=== PATIENT | male | born 1975 | race Caucasian/White ===

== ENCOUNTER 2017-10-08 11:41 | Emergency (ER) | payer BC ==
[~2017-10-08] VITALS: Ht 185.4 cm; Wt 97.5 kg
--- NOTE | 2017-10-08 12:18 | PHYS DOC ---
Adult General Chief Complaint Chief Complaint: FLANK PAIN HPI HPI Patient is a 42 year old male who presents with flank pain and left testicle pain. He states all started a couple hours ago in his left testicle started hurting and now is radiating up into his left flank. States this is similar to when he has kidney stone but his left testicle didn't hurt then. He does have urgency and states he can only urinate a few drops at a time. Denies any nausea or vomiting. Review of Systems Review of Systems Constitutional: Denies fever or chills [] Eyes: Denies change in visual acuity, redness, or eye pain [] HENT: Denies nasal congestion or sore throat [] Respiratory: Denies cough or shortness of breath [] Cardiovascular: No additional information not addressed in HPI [] GI: Denies abdominal pain, nausea, vomiting, bloody stools or diarrhea [] : Denies dysuria or hematuria positive for urgency Musculoskeletal: Denies back pain or joint pain [] Integument: Denies rash or skin lesions [] Neurologic: Denies headache, focal weakness or sensory changes [] Endocrine: Denies polyuria or polydipsia [] All other systems were reviewed and found to be within normal limits, except as documented in this note. Current Medications Current Medications Current Medications Medications (Trade) Dose Ordered Sig/Giles Start Time Stop Time Status Last Admin Dose Admin Diphenhydramine HCl (Benadryl) 50 mg STK-MED ONCE 10/08/17 12:44 10/08/17 12:45 DC Ketorolac Tromethamine (Toradol) 30 mg 1X ONCE 10/08/17 13:15 10/08/17 13:16 DC 10/08/17 14:42 30 MG Morphine Sulfate 4 mg PRN Q15MIN PRN 10/08/17 12:30 10/08/17 12:56 DC 10/08/17 12:40 4 MG Sodium Chloride 1,000 ml @ 1,000 mls/hr 1X ONCE 10/08/17 13:15 10/08/17 14:24 DC 10/08/17 14:39 1,000 MLS/HR Tamsulosin HCl (Flomax) 0.4 mg 1X ONCE 10/08/17 14:45 10/08/17 14:46 DC 10/08/17 14:45 0.4 MG Allergies Allergies Allergies Coded Allergies Type Severity Reaction Last Updated Verified morphine Allergy Intermediate HIVES 10/08/17 Yes Physical Exam Physical Exam Constitutional: Well developed, well nourished, no acute distress, non-toxic appearance. [] HENT: Normocephalic, atraumatic, bilateral external ears normal, oropharynx moist, no oral exudates, nose normal. [] Eyes: PERRLA, EOMI, conjunctiva normal, no discharge. [] Neck: Normal range of motion, no tenderness, supple, no stridor. [] Cardiovascular:Heart rate regular rhythm, no murmur [] Lungs & Thorax: Bilateral breath sounds clear to auscultation [] Abdomen: Bowel sounds normal, soft, no tenderness, no masses, no pulsatile masses. Tenderness involving the left testicle Skin: Warm, dry, no erythema, no rash. [] Back: No tenderness, positive for left CVA tenderness. [] Extremities: No tenderness, no cyanosis, no clubbing, ROM intact, no edema. [] Neurologic: Alert and oriented X 3, normal motor function, normal sensory function, no focal deficits noted. [] Psychologic: Affect normal, judgement normal, mood normal. [] Current Patient Data Vital Signs Vital Signs Date Time Temp Pulse Resp B/P (MAP) Pulse Ox O2 Delivery O2 Flow Rate FiO2 10/08/17 15:00 68 18 119/78 (92) 96 Room Air 10/08/17 11:48 97.9 97.9 Lab Values Laboratory Tests Test 10/08/17 11:55 10/08/17 12:05 Urine Collection Type Unknown Urine Color Yellow Urine Clarity Clear Urine pH 6.0 Urine Specific [place] 1.015 Urine Protein Negative mg/dL (NEG-TRACE) Urine Glucose (UA) Negative mg/dL (NEG) Urine Ketones (Stick) Negative mg/dL (NEG) Urine Blood Large (NEG) Urine Nitrite Negative (NEG) Urine Bilirubin Negative (NEG) Urine Urobilinogen Dipstick 0.2 mg/dL (0.2 mg/dL) Urine Leukocyte Esterase Negative (NEG) Urine RBC Tntc /HPF (0-2) Urine WBC 0 /HPF (0-4) Urine Bacteria 0 /HPF (0-FEW) Urine Opiates Screen Neg (NEG) Urine Methadone Screen Neg (NEG) Urine Barbiturates Neg (NEG) Urine Phencyclidine Screen Neg (NEG) Urine Amphetamine/Methamphetamine Neg (NEG) Urine Benzodiazepines Screen Neg (NEG) Urine Cocaine Screen Neg (NEG) Urine Cannabinoids Screen Neg (NEG) Urine Ethyl Alcohol Neg (NEG) White Blood Count 7.7 x10^3/uL (4.0-11.0) Red Blood Count 5.61 x10^6/uL (4.30-5.70) Hemoglobin 15.3 g/dL (13.0-17.5) Hematocrit 46.8 % (39.0-53.0) Mean Corpuscular Volume 83 fL (79-100) Mean Corpuscular Hemoglobin 27 pg (25-35) Mean Corpuscular Hemoglobin Concent 33 g/dL (31-37) Red Cell Distribution Width 13.6 % (11.5-14.5) Platelet Count 263 x10^3/uL (140-400) Neutrophils (%) (Auto) 56 % (31-73) Lymphocytes (%) (Auto) 35 % (24-48) Monocytes (%) (Auto) 8 % (0-9) Eosinophils (%) (Auto) 1 % (0-3) Basophils (%) (Auto) 1 % (0-3) Neutrophils # (Auto) 4.3 x10^3uL (1.8-7.7) Lymphocytes # (Auto) 2.7 x10^3/uL (1.0-4.8) Monocytes # (Auto) 0.6 x10^3/uL (0.0-1.1) Eosinophils # (Auto) 0.1 x10^3/uL (0.0-0.7) Basophils # (Auto) 0.1 x10^3/uL (0.0-0.2) Prothrombin Time 12.6 SEC (11.7-14.0) Prothrombin Time INR 1.0 (0.8-1.1) PTT 27 SEC (24-38) Sodium Level 139 mmol/L (136-145) Potassium Level 4.0 mmol/L (3.5-5.1) Chloride Level 101 mmol/L (98-107) Carbon Dioxide Level 29 mmol/L (21-32) Anion Gap 9 (6-14) Blood Urea Nitrogen 12 mg/dL (8-26) Creatinine 1.0 mg/dL (0.7-1.3) Estimated GFR (Cockcroft-Gault) 82.3 Glucose Level 104 mg/dL (70-99) H Calcium Level 8.9 mg/dL (8.5-10.1) Total Bilirubin 0.9 mg/dL (0.2-1.0) Direct Bilirubin 0.1 mg/dL (0.0-0.2) Aspartate Amino Transferase (AST) 42 U/L (15-37) H Alanine Aminotransferase (ALT) 123 U/L (16-63) H Alkaline Phosphatase 100 U/L (46-116) Creatine Kinase 96 U/L (39-308) Creatine Kinase MB (Mass) < 0.5 ng/mL (0.0-3.6) Creatine Kinase MB Relative Index % (0-4) Total Protein 8.5 g/dL (6.4-8.2) H Albumin 4.3 g/dL (3.4-5.0) Lipase 211 U/L (73-393) Laboratory Tests 10/08/17 12:05 Laboratory Tests 10/08/17 12:05 EKG EKG [] Radiology/Procedures Radiology/Procedures [facility] [address] [place] [address] IMAGING REPORT Signed PATIENT: KARTHIK SÁNCHEZ ACCOUNT: [id number] : 1975 LOCATION: ER AGE: 42 SEX: M EXAM STATUS: REG ER ORD. PHYSICIAN: RADHA LIZ MD REASON: LT TESTICLE PAIN PROCEDURE: TESTICULAR/SCROTUM Ultrasound testicles Indication: Left testicle pain Technique: Grayscale, color Doppler and spectral waveform ultrasound images of the chest were obtained. Comparison: None Findings: The right testicle measures 5.0 x 3.3 x 2.7 cm and is normal in echogenicity without focal lesion. Blood flow is demonstrated in right testicle. The epididymal head measures 1.2 cm and is within normal limits. The left testicle measures 4.3 x 3.4 x 2.4 cm and is normal in echogenicity without focal lesion. Blood flow is demonstrated in left testicle. The epididymal head measures 1.0 cm and is within normal limits. Small bilateral hydroceles. Mild left-sided varicoceles. Impression: 1. Blood flow demonstrated to both testicles. 2. No testicular lesions. DICTATED and SIGNED BY: TILA BARAHONA DO DATE: 10/08/17 1345 CC: RADHA LIZ MD; NO PCP ~ [facility] [address] [place] [address] IMAGING REPORT Signed PATIENT: KARTHIK SÁNCHEZ ACCOUNT: [id number] : 1975 LOCATION: ER AGE: 42 SEX: M EXAM STATUS: REG ER ORD. PHYSICIAN: RADHA LIZ MD REASON: stone protocol PROCEDURE: CT ABDOMEN PELVIS WO CONTRAST Indication: Left flank pain. Axial imaging through the abdomen and pelvis was performed without contrast. No prior studies are available for comparison. Imaging through the lung bases demonstrates areas of linear scarring or atelectasis. The liver and gallbladder are unremarkable. The pancreas and spleen are unremarkable. No adrenal mass is identified. The right kidney is unremarkable. There is a 4 mm nonobstructing calculus in the lower pole of the left kidney. There is mild left hydroureteronephrosis and periureteral inflammatory stranding. This appears to be caused by a 3 mm calculus located at the left UVJ. No other ureteral calculi are seen. The bladder is unremarkable. The small and large bowel loops are normal caliber. There is no ascites. Impression: 1. 4 mm nonobstructing left renal calculus. 2. 3 mm left UVJ calculus producing mild hydroureteronephrosis. PQRS Compliance Statement: One or more of the following individualized dose reduction techniques were utilized for this examination: 1. Automated exposure control 2. Adjustment of the mA and/or kV according to patient size 3. Use of iterative reconstruction technique DICTATED and SIGNED BY: DANIELLE ALCANTARA MD DATE: 10/08/17 1358 CC: RADHA LIZ MD; NO PCP ~ Impressions: Left sided kidney stone Course & Med Decision Making Course & Med Decision Making Pertinent Labs and Imaging studies reviewed. (See chart for details) Testicular ultrasound does not show any acute abnormality's. CT abdomen and pelvis shows 2 stones and the left one in the UVP, pain was controlled with morphine even though he developed a rash to and received IV Benadryl. He is not had any more complaints about his rash. He is being discharged home with Flomax , [place] and Zofran as needed. He is to follow-up with urology within the next week and strain his urine. Return precautions given. He is agreeable to the plan and being discharged home. Aniya Disclaimer Aniya Disclaimer This electronic medical record was generated, in whole or in part, using a voice recognition dictation system. Departure Departure Impression: Primary Impression: Kidney stone Disposition: HOME, SELF-CARE Condition: STABLE Referrals: NO PCP (PCP) Patient Instructions: Kidney Stones Additional Instructions: You have a kidney stone on the left side is causing your pain and discomfort. You can take Zofran for nausea in addition to [place] for pain. [place] is a narcotic pain medicine and can impair judgment and make you sleepy. Please don' t drive your car while taking this medicine or drink alcohol. You will also need to take Flomax as directed to help pass a kidney stone. He will need to strain your urine and try to catch the stone. You will need to follow-up with urology. Please call [facility] urology at [phone]. They're located at [facility]. Return the ER if you have severe pain, uncontrolled nausea vomiting, or other concerns. You have an allergy to morphine and you did receive this in the ER. If you develop any more itching or blotchiness of your skin please take Benadryl they can take [id number] as needed. If you develop any shortness of breath, chest discomfort, nausea vomiting or abdominal pain please return back to emergency department immediately. Scripts Tamsulosin Hcl (FLOMAX) 0.4 Mg Cap.er.24h 1 CAP PO DAILY, #30 CAP Prov: RADHA LIZ MD 10/08/17 Ondansetron (ZOFRAN ODT) 4 Mg Tab.rapdis 1 TAB SL Q8HRS Y for NAUSEA, #10 TAB Prov: RADHA LIZ MD 10/08/17 Hydrocodone/Apap 5-325 (NORCO 5-325 TABLET) 1 Each Tablet 1 TAB PO PRN Q6HRS Y for PAIN, #20 TAB 0 Refills Prov: RADHA LIZ MD 10/08/17 RADHA LIZ MD Oct 08, 2017 12:18
[2017-10-08 12:29] LABS: BASO # 0.1 x10^3/uL (0.0-0.2); BASO % 1 % (0-3); EOS % 1 % (0-3); HEMATOCRIT 46.8 % (39.0-53.0); HEMOGLOBIN 15.3 g/dL (13.0-17.5); LYMPH # 2.7 x10^3/uL (1.0-4.8); LYMPH % 35 % (24-48); MEAN CORPUSCULAR HEMOGLOBIN 27 pg (25-35); MEAN CORPUSCULAR HGB CONC 33 g/dL (31-37); MEAN CORPUSCULAR VOLUME 83 fL (79-100); MONO % 8 % (0-9); NEUT % 56 % (31-73); PLATELET COUNT 263 x10^3/uL (140-400); RED BLOOD COUNT 5.61 x10^6/uL (4.30-5.70); RED CELL DISTRIBUTION WIDTH 13.6 % (11.5-14.5); WHITE BLOOD COUNT 7.7 x10^3/uL (4.0-11.0)
[2017-10-08 12:30] LABS: BILIRUBIN,URINE NEGATIVE (NEG); GLUCOSE,URINE NEGATIVE (NEG); NITRITE,URINE NEGATIVE (NEG); PROTEIN,URINE NEGATIVE (NEG-TRACE); UROBILINOGEN,URINE 0.2 mg/dL (0.2 mg/dL)
[2017-10-08] MEDS ORDERED: MORPHINE SULFATE 4 MG/ML DISP.SYRIN. IV/SQ PRN (12:30)
[2017-10-08 12:35] LABS: CALCIUM 8.9 mg/dL (8.5-10.1); GFR 82.3
[2017-10-08 12:37] LABS: BARBITURATES NEG (NEG); BENZODIAZEPINES NEG (NEG); CANNABINOIDS NEG (NEG); COCAINE NEG (NEG); METHADONE NEG (NEG); OPIATES NEG (NEG); PHENCYCLIDINE NEG (NEG)
[2017-10-08] MEDS: IV NORMAL SALINE 1000ML BAG 1,000 ML IV SCH ×2 (12:38→12:49)
[2017-10-08 12:39] LABS: PROTHROMBIN TIME PATIENT 12.6 SEC (11.7-14.0)
[2017-10-08 12:40] LABS: ALBUMIN 4.3 g/dL (3.4-5.0); DIRECT BILIRUBIN 0.1 mg/dL (0.0-0.2); TOTAL BILIRUBIN 0.9 mg/dL (0.2-1.0); TOTAL PROTEIN 8.5 g/dL (6.4-8.2)
[2017-10-08] MEDS ORDERED: diphenhydrAMINE 50 MG/ML VIAL ONE (12:44)
[2017-10-08] MEDS ORDERED: diphenhydrAMINE 50 MG/ML VIAL IVP ONE (12:45)
[2017-10-08 12:46] LABS: BACTERIA,URINE 0 /HPF (0-FEW); RBC,URINE TNTC /HPF (0-2); WBC,URINE 0 /HPF (0-4)
[2017-10-08 12:54] LABS: CKMB MASS < 0.5 ng/mL (0.0-3.6); CREATINE KINASE 96 U/L (39-308)
[2017-10-08] MEDS ORDERED: IV NORMAL SALINE 1000ML BAG 1,000 ML IV ONE (13:15)
[2017-10-08] MEDS ORDERED: KETOROLAC 30 MG/ML INJ. IV ONE (13:15)
--- NOTE | 2017-10-08 13:54 | RAD ---
Ultrasound testicles Indication: Left testicle pain Technique: Grayscale, color Doppler and spectral waveform ultrasound images of the chest were obtained. Comparison: None Findings: The right testicle measures 5.0 x 3.3 x 2.7 cm and is normal in echogenicity without focal lesion. Blood flow is demonstrated in right testicle. The epididymal head measures 1.2 cm and is within normal limits. The left testicle measures 4.3 x 3.4 x 2.4 cm and is normal in echogenicity without focal lesion. Blood flow is demonstrated in left testicle. The epididymal head measures 1.0 cm and is within normal limits. Small bilateral hydroceles. Mild left-sided varicoceles. Impression: 1. Blood flow demonstrated to both testicles. 2. No testicular lesions.
--- NOTE | 2017-10-08 14:06 | RAD ---
Indication: Left flank pain. Axial imaging through the abdomen and pelvis was performed without contrast. No prior studies are available for comparison. Imaging through the lung bases demonstrates areas of linear scarring or atelectasis. The liver and gallbladder are unremarkable. The pancreas and spleen are unremarkable. No adrenal mass is identified. The right kidney is unremarkable. There is a 4 mm nonobstructing calculus in the lower pole of the left kidney. There is mild left hydroureteronephrosis and periureteral inflammatory stranding. This appears to be caused by a 3 mm calculus located at the left UVJ. No other ureteral calculi are seen. The bladder is unremarkable. The small and large bowel loops are normal caliber. There is no ascites. Impression: 1. 4 mm nonobstructing left renal calculus. 2. 3 mm left UVJ calculus producing mild hydroureteronephrosis. PQRS Compliance Statement: One or more of the following individualized dose reduction techniques were utilized for this examination: 1. Automated exposure control 2. Adjustment of the mA and/or kV according to patient size 3. Use of iterative reconstruction technique
[2017-10-08] MEDS ORDERED: TAMSULOSIN 0.4 MG CAP.ER.24H. PO ONE (14:45)
[2017-10-08] MEDS ORDERED: HYDR-971 PO (15:03)
[2017-10-08] MEDS ORDERED: TAMS0.4C97 PO (15:03)
[2017-10-08] MEDS ORDERED: ONDA4TAB10 SL (15:03)
[2017-10-08 15:57] VITALS: BP 130/88
== END 2017-10-08 16:00 | disposition home or self-care (01) ==
LOC: ER 11:41
DX: N13.2 Hydronephrosis with renal and ureteral calculous obstruction (principal); Z88.5 Allergy status to narcotic agent
CPT/HCPCS: 36415; 74176; 76870; 80048; 80076; 80307; 81001; 82553; 83690; 85025; 85610; 85730; 96361; 96374; 96375; 99285; J1200; J1885; J2270; J7030; G0479

== ENCOUNTER 2018-10-24 09:08 | Emergency (ER) | payer BC ==
[~2018-10-24] VITALS: Ht 185.4 cm; Wt 95.3 kg
[~2018-10-24 09:08] MED LIST: HYDR-3164 PO; ONDA4TAB10 SL; TAMS0.4C97 PO
[2018-10-24 09:29] LABS: BASO # 0.1 x10^3/uL (0.0-0.2); BASO % 1 % (0-3); EOS # 0.1 x10^3/uL (0.0-0.7); EOS % 1 % (0-3); HEMATOCRIT 46.5 % (39.0-53.0); HEMOGLOBIN 15.3 g/dL (13.0-17.5); LYMPH # 2.3 x10^3/uL (1.0-4.8); LYMPH % 34 % (24-48); MEAN CORPUSCULAR HEMOGLOBIN 28 pg (25-35); MEAN CORPUSCULAR HGB CONC 33 g/dL (31-37); MEAN CORPUSCULAR VOLUME 83 fL (79-100); MONO # 0.4 x10^3/uL (0.0-1.1); MONO % 6 % (0-9); NEUT # 3.8 x10^3uL (1.8-7.7); NEUT % 58 % (31-73); PLATELET COUNT 256 x10^3/uL (140-400); RED BLOOD COUNT 5.58 x10^6/uL (4.30-5.70); RED CELL DISTRIBUTION WIDTH 13.9 % (11.5-14.5); WHITE BLOOD COUNT 6.6 x10^3/uL (4.0-11.0)
[2018-10-24] MEDS ORDERED: IV NORMAL SALINE 1000ML BAG 1,000 ML IV ONE (09:30)
[2018-10-24] MEDS ORDERED: ONDANSETRON PF 4 MG/2 ML VIAL. IV ONE (09:30)
[2018-10-24] MEDS ORDERED: fentaNYL PF VIAL 100 MCG/2 ML VIAL IV ONE ×2 (09:30→11:00)
[2018-10-24 09:46] LABS: CALCIUM 9.6 mg/dL (8.5-10.1); CREATININE 1.2 mg/dL (0.7-1.3); GFR 66.4; POTASSIUM 3.9 mmol/L (3.5-5.1)
[2018-10-24 09:52] LABS: ALBUMIN 4.2 g/dL (3.4-5.0); TOTAL BILIRUBIN 0.9 mg/dL (0.2-1.0); TOTAL PROTEIN 8.6 g/dL (6.4-8.2)
[2018-10-24 10:20] LABS: BILIRUBIN,URINE NEGATIVE (NEG); CLARITY,URINE CLEAR; COLOR,URINE YELLOW; NITRITE,URINE NEGATIVE (NEG); PH,URINE 5.5; PROTEIN,URINE 30 mg/dL (NEG-TRACE); UROBILINOGEN,URINE 0.2 mg/dL (0.2 mg/dL)
[2018-10-24] MEDS: fentaNYL PF VIAL 100 MCG/2 ML VIAL IV PRN ×2 (10:29→11:15)
--- NOTE | 2018-10-24 10:36 | RAD ---
CT Abdomen and Pelvis without contrast History: Left-sided flank pain, history of kidney stones, dysuria Technique: Noncontrast CT imaging was performed of the abdomen and pelvis. Multiplanar images are reviewed. Exposure: One or more of the following individualized dose reduction techniques were utilized for this examination: 1. Automated exposure control 2. Adjustment of the mA and/or kV according to patient size 3. Use of iterative reconstruction technique. Comparison: October 08, 2017 Findings: There is mild left hydroureteronephrosis, 5 mm calculus in the distal left ureter just proximal to the left ureterovesical junction. There is mild hazy change about the left ureter. There is no renal calculus. There is no right hydronephrosis. There is mild atelectasis visualized lung bases bilaterally. Accurate evaluation of abdominal visceral organs is limited without intravenous contrast. There is no obvious abnormality of the spleen, liver, or pancreas. Gallbladder is present without obvious intraluminal abnormality by CT. There is mild diffuse hepatic steatosis. There is no adrenal nodularity. Accurate evaluation of bowel is limited without oral contrast. Appearance of transverse colonic wall thickening may be accentuated by nondistention during exam. Normal caliber appendix is visualized. There is no free air or free fluid. A 1.3 cm sclerotic focus of the right hemipelvis is stable, may be a bone island Impression: 1. There is mild left hydroureteronephrosis, 5 mm calculus in the distal left ureter just proximal to the ureterovesical junction. 2. There is mild diffuse hepatic steatosis. 3. Appearance of transverse colonic wall thickening may be accentuated by nondistention during exam, otherwise difficult to accurately characterize. Electronically signed by: Gerald Craven MD (10/24/2018 10:33 AM) [id number]
[2018-10-24 10:37] LABS: SQUAMOUS EPITHELIAL CELL,UR OCC /LPF
[2018-10-24 10:38] LABS: BACTERIA,URINE 0 /HPF (0-FEW); RBC,URINE 20-40 /HPF (0-2); WBC,URINE OCC /HPF (0-4)
[2018-10-24] MEDS ORDERED: IBUP-1060 PO (10:51)
[2018-10-24] MEDS ORDERED: OXYC1TAB15 PO (10:51)
[2018-10-24] MEDS ORDERED: TAMS0.4C97 PO (10:51)
--- NOTE | 2018-10-24 10:52 | PHYS DOC ---
Past Medical History Past Medical History: Kidney Stone Past Surgical History: No Surgical History Alcohol Use: Occasionally Drug Use: None Adult General Chief Complaint Chief Complaint: FLANK PAIN HPI HPI Patient is a 43 year old [f__sex] who presents with [] Review of Systems Review of Systems Constitutional: Denies fever or chills [] Eyes: Denies change in visual acuity, redness, or eye pain [] HENT: Denies nasal congestion or sore throat [] Respiratory: Denies cough or shortness of breath [] Cardiovascular: No additional information not addressed in HPI [] GI: Denies abdominal pain, nausea, vomiting, bloody stools or diarrhea [] : Denies dysuria or hematuria [] Musculoskeletal: Denies back pain or joint pain [] Integument: Denies rash or skin lesions [] Neurologic: Denies headache, focal weakness or sensory changes [] Endocrine: Denies polyuria or polydipsia [] All other systems were reviewed and found to be within normal limits, except as documented in this note. Current Medications Current Medications Current Medications Medications (Trade) Dose Ordered Sig/Giles Start Time Stop Time Status Last Admin Dose Admin Fentanyl Citrate (Fentanyl 2ml Vial) 50 mcg PRN Q2HR PRN 10/24/18 10:15 10/24/18 10:29 50 MCG Ondansetron HCl (Zofran) 4 mg 1X ONCE 10/24/18 09:30 10/24/18 09:31 DC 10/24/18 09:34 4 MG Sodium Chloride 1,000 ml @ 1,000 mls/hr 1X ONCE 10/24/18 09:30 10/24/18 10:29 DC 10/24/18 09:32 1,000 MLS/HR Allergies Allergies Allergies Coded Allergies Type Severity Reaction Last Updated Verified morphine Allergy Intermediate HIVES 10/24/18 Yes Physical Exam Physical Exam Constitutional: Well developed, well nourished, no acute distress, non-toxic appearance. [] HENT: Normocephalic, atraumatic, bilateral external ears normal, oropharynx moist, no oral exudates, nose normal. [] Eyes: PERRLA, EOMI, conjunctiva normal, no discharge. [] Neck: Normal range of motion, no tenderness, supple, no stridor. [] Cardiovascular:Heart rate regular rhythm, no murmur [] Lungs & Thorax: Bilateral breath sounds clear to auscultation [] Abdomen: Bowel sounds normal, soft, no tenderness, no masses, no pulsatile masses. [] Skin: Warm, dry, no erythema, no rash. [] Back: No tenderness, no CVA tenderness. [] Extremities: No tenderness, no cyanosis, no clubbing, ROM intact, no edema. [] Neurologic: Alert and oriented X 3, normal motor function, normal sensory function, no focal deficits noted. [] Psychologic: Affect normal, judgement normal, mood normal. [] Current Patient Data Vital Signs Vital Signs Date Time Temp Pulse Resp B/P (MAP) Pulse Ox O2 Delivery O2 Flow Rate FiO2 10/24/18 10:29 18 95 Room Air 10/24/18 09:10 97.5 82 150/104 (119) 97.5 Lab Values Laboratory Tests Test 10/24/18 09:20 10/24/18 10:07 White Blood Count 6.6 x10^3/uL (4.0-11.0) Red Blood Count 5.58 x10^6/uL (4.30-5.70) Hemoglobin 15.3 g/dL (13.0-17.5) Hematocrit 46.5 % (39.0-53.0) Mean Corpuscular Volume 83 fL (79-100) Mean Corpuscular Hemoglobin 28 pg (25-35) Mean Corpuscular Hemoglobin Concent 33 g/dL (31-37) Red Cell Distribution Width 13.9 % (11.5-14.5) Platelet Count 256 x10^3/uL (140-400) Neutrophils (%) (Auto) 58 % (31-73) Lymphocytes (%) (Auto) 34 % (24-48) Monocytes (%) (Auto) 6 % (0-9) Eosinophils (%) (Auto) 1 % (0-3) Basophils (%) (Auto) 1 % (0-3) Neutrophils # (Auto) 3.8 x10^3uL (1.8-7.7) Lymphocytes # (Auto) 2.3 x10^3/uL (1.0-4.8) Monocytes # (Auto) 0.4 x10^3/uL (0.0-1.1) Eosinophils # (Auto) 0.1 x10^3/uL (0.0-0.7) Basophils # (Auto) 0.1 x10^3/uL (0.0-0.2) Sodium Level 139 mmol/L (136-145) Potassium Level 3.9 mmol/L (3.5-5.1) Chloride Level 100 mmol/L (98-107) Carbon Dioxide Level 26 mmol/L (21-32) Anion Gap 13 (6-14) Blood Urea Nitrogen 16 mg/dL (8-26) Creatinine 1.2 mg/dL (0.7-1.3) Estimated GFR (Cockcroft-Gault) 66.4 BUN/Creatinine Ratio 13 (6-20) Glucose Level 117 mg/dL (70-99) H Calcium Level 9.6 mg/dL (8.5-10.1) Total Bilirubin 0.9 mg/dL (0.2-1.0) Aspartate Amino Transferase (AST) 40 U/L (15-37) H Alanine Aminotransferase (ALT) 112 U/L (16-63) H Alkaline Phosphatase 101 U/L (46-116) Total Protein 8.6 g/dL (6.4-8.2) H Albumin 4.2 g/dL (3.4-5.0) Albumin/Globulin Ratio 1.0 (1.0-1.7) Urine Collection Type Unknown Urine Color Yellow Urine Clarity Clear Urine pH 5.5 Urine Specific [place] >=1.030 Urine Protein 30 mg/dL (NEG-TRACE) Urine Glucose (UA) Negative mg/dL (NEG) Urine Ketones (Stick) Negative mg/dL (NEG) Urine Blood Large (NEG) Urine Nitrite Negative (NEG) Urine Bilirubin Negative (NEG) Urine Urobilinogen Dipstick 0.2 mg/dL (0.2 mg/dL) Urine Leukocyte Esterase Negative (NEG) Urine RBC 20-40 /HPF (0-2) Urine WBC Occ /HPF (0-4) Urine Squamous Epithelial Cells Occ /LPF Urine Bacteria 0 /HPF (0-FEW) Urine Mucus Mod /LPF Laboratory Tests 10/24/18 09:20 Laboratory Tests 10/24/18 09:20 EKG EKG [] Radiology/Procedures Radiology/Procedures [] Course & Med Decision Making Course & Med Decision Making Pertinent Labs and Imaging studies reviewed. (See chart for details) [] Dragon Disclaimer Dragon Disclaimer This electronic medical record was generated, in whole or in part, using a voice recognition dictation system. Departure Departure Impression: Primary Impression: Ureteral stone Disposition: 01 HOME, SELF-CARE Condition: STABLE Referrals: NO PCP (PCP) Patient Instructions: Diet for Kidney Stones Additional Instructions: Take the medications as directed. Screening urine to ensure stone passage. If worsening return to the emergency department. Follow-up with urology for recheck in 3-4 days. Scripts Ibuprofen (IBUPROFEN) 800 Mg Tablet 800 MG PO PRN Q6HRS PRN for INFLAMMATION, #30 TAB Prov: RIKKI CROWELL APRN 10/24/18 Tamsulosin Hcl (FLOMAX) 0.4 Mg Cap.er.24h 1 CAP PO DAILY for kidney stone, #30 CAP 11 Refills Prov: RIKKI CROWELL APRN 10/24/18 Oxycodone/Apap 5-325 (PERCOCET 5-325 MG TABLET ) 1 Each Tablet 1 TAB PO PRN Q6HRS PRN for PAIN, #20 TAB 0 Refills Prov: RIKKI CROWELL APRN 10/24/18 RIKKI CROWELL APRN Oct 24, 2018 10:51
[2018-10-24] MEDS ORDERED: KETOROLAC 30 MG/ML VIAL. IV ONE (11:00)
[2018-10-24 11:13] VITALS: BP 142/96
== END 2018-10-24 11:25 | disposition home or self-care (01) ==
LOC: ER 09:08
DX: N13.2 Hydronephrosis with renal and ureteral calculous obstruction (principal); Z88.5 Allergy status to narcotic agent
CPT/HCPCS: 36415; 74176; 80053; 81001; 85025; 96374; 96375; 96376; 99284; J1885; J2405; J3010; J7030